=== PATIENT | female | born 1980 | race Caucasian/White ===

== ENCOUNTER 2018-07-22 13:11 | Emergency (ER) | payer OTHER ==
[2018-07-22] MEDS: METHYLPREDNISOLONE 125 MG INJ IV (14:57)
[2018-07-22] MEDS: IPRATROPIUM (NEB) 0.5 MG/2.5 ML AMP NEB (15:26)
[2018-07-22] MEDS: ALBUTEROL 0.5% (NEB) 2.5 MG/0.5 ML AMP NEB (15:26)
== END 2018-07-22 16:15 | disposition home or self-care (01) ==
LOC: FTE 13:11
DX: J45.21 Mild intermittent asthma with (acute) exacerbation (principal)
CPT/HCPCS: 71045; 81025; 94664; 96374; 99284-25